=== PATIENT | male | born 1940 | race Caucasian/White ===

== ENCOUNTER 2017-12-04 15:40 | Inpatient (IN) | payer MEDICARE, OTHER ==
[~2017-12-04] VITALS: Ht 172.7 cm; Wt 62.7 kg
[~2017-12-04 15:40] MED LIST: ALBU8.5H8 IH; ASPI81TA52 PO; ATOR20TA PO; CHOL400T57 PO; CLOP75TA33 PO; FLO0.4C PO; LISI2.5T49 PO; METO25TA6 PO; MULT-342 PO; PANT40TA39 PO; VITC500T PO
[2017-12-04 16:08] LABS: BASOPHILS # (AUTO) 0.1 X10'3 (0-0.2); BASOPHILS % (AUTO) 0.9 % (0-1); EOSINOPHILS # (AUTO) 0.1 X10'3 (0-0.9); EOSINOPHILS % (AUTO) 1.5 % (0-6); HEMATOCRIT 41.4 % (42.0-52.0); HEMOGLOBIN 14.3 g/dl (14.0-17.9); MEAN CORPUSCULAR HEMOGLOBIN 29.5 PG (27.0-31.0); MEAN CORPUSCULAR HGB CONC 34.4 % (33.0-36.5); MEAN CORPUSCULAR VOLUME 85.8 FL (78-98); MEAN PLATELET VOLUME 8.3 FL (7.4-10.4); MONOCYTES # (AUTO) 0.5 X10'3 (0-0.9); MONOCYTES % (AUTO) 7.5 % (2-12); NEUTROPHILS # (AUTO) 5.4 X10'3 (1.8-7.7); NEUTROPHILS % (AUTO) 76.1 % (42-75); PLATELET COUNT 216 X10'3 (140-440); RED BLOOD COUNT 4.83 X10'6 (4.70-6.10); RED CELL DISTRIBUTION WIDTH 14.3 % (11.5-14.5); WHITE BLOOD COUNT 7.1 X10'3 (4.5-11.0)
[2017-12-04 16:27] LABS: PARTIAL THROMBOPLASTIN TIME 26 SECONDS (22-32); PROTHROMBIN TIME 10.6 SECONDS (9.0-12.0)
[2017-12-04 16:32] LABS: ACETAMINOPHEN < 2.0 UG/ML (10-30); CREATINE KINASE 79 U/L (39-308); ETHANOL < 0.010 GM/DL (0.0-0.010); LIPASE 145 U/L (73-393); TROPONIN I 0.04 NG/ML (0.0-0.05)
[2017-12-04 17:05] LABS: ALANINE AMINOTRANSFERASE 11 U/L (12-78); ALBUMIN 3.6 G/DL (3.4-5.0); ALBUMIN/GLOBULIN RATIO 1.2 (1.1-1.5); ALKALINE PHOSPHATASE 93 IU/L (46-116); ANION GAP 10 (8-16); ASPARTATE AMINO TRANSFERASE 12 U/L (10-37); BILIRUBIN,TOTAL 0.7 MG/DL (0.1-1.0); BLOOD UREA NITROGEN 19 MG/DL (7-18); BUN/CREATININE RATIO 14.6 (5.4-32.0); CALCIUM 8.8 MG/DL (8.5-10.1); CHLORIDE 110 MMOL/L (99-107); GLUCOSE 140 MG/DL (70-104); POTASSIUM 4.4 MMOL/L (3.5-5.1); SODIUM 144 MMOL/L (135-145); TOTAL CARBON DIOXIDE 24.5 MMOL/L (24-32); TOTAL PROTEIN 6.7 G/DL (6.4-8.2); eGFR 53 ML/MIN
[2017-12-04 18:02] LABS: CLARITY,URINE CLEAR (Clear); COLOR,URINE YELLOW (Yellow); GLUCOSE, URINE NEGATIVE (Neg); KETONES,URINE NEGATIVE (Neg); LEUKOCYTE ESTERASE ,URINE NEGATIVE (Neg); NITRITES, URINE NEGATIVE (Neg); OCCULT BLOOD,URINE NEGATIVE (Neg); PH,URINE 5.5 (4.8-8.0); PROTEIN,URINE TRACE mg/dl (Neg); UA COLLECTION TYPE STRAIGHT CATH; UROBILINOGEN,URINE 0.2 E.U/dL (0.2-1.0)
[2017-12-04 18:12] LABS: HYALINE CASTS 0-3 /LPF (NEGATIVE); MUCUS STRANDS FEW /LPF (Neg); SQUAMOUS EPITHELIAL CELL,UR FEW /LPF (FEW); TRANSITIONAL EPI CELLS,URINE FEW /HPF
[2017-12-04 18:13] LABS: BACTERIA,URINE NONE SEEN /HPF (Neg); RBC,URINE 0-2 /HPF (0-2); WBC,URINE 0-4 /HPF (0-4)
[2017-12-04 18:15] LABS: AMORPHOUS URATES 2+
[2017-12-04 18:16] LABS: URINE AMPHETAMINE SCREEN NEGATIVE (Neg); URINE BARBITUATE SCREEN NEGATIVE (Neg); URINE BENZODIAZEPINES SCREEN NEGATIVE (Neg); URINE CANNABINOID SCREEN NEGATIVE (Neg); URINE COCAINE SCREEN NEGATIVE (Neg); URINE METHADONE SCREEN NEGATIVE (Neg); URINE OPIATE SCREEN NEGATIVE (Neg); URINE PHENCYCLIDINE SCREEN NEGATIVE (Neg)
[2017-12-04] MEDS ORDERED: cephalexin 500mg capsule PO ONE (18:50)
[2017-12-04] MEDS ORDERED: CEPH250T PO (18:50)
[2017-12-04] MEDS ORDERED: GALA16CA PO (19:22)
[2017-12-04] MEDS ORDERED: CITA20TA11 PO (19:22)
[2017-12-04] MEDS ORDERED: ATOR80TA PO (19:22)
[2017-12-04] MEDS ORDERED: CHOL2000 PO (19:22)
[2017-12-04] MEDS ORDERED: LOSA25TA96 PO (19:22)
[2017-12-04] MEDS ORDERED: FINA5TAB11 PO (19:22)
[2017-12-04] MEDS ORDERED: temazepam 15mg capsule PO PRN (21:00)
[2017-12-04] MEDS ORDERED: diphenhydrAMINE 50 mg/ml inj IV PRN (22:00)
[2017-12-04] MEDS ORDERED: metoclopramide 5 mg/ml inj IV PRN (22:00)
[2017-12-04] MEDS ORDERED: morphine 2 MG/ML inj. syringe IV PRN ×2 (22:00)
[2017-12-04] MEDS ORDERED: bisacodyl 10mg suppository rectal RC PRN (22:00)
[2017-12-04] MEDS ORDERED: magnesium hydroxide 30ml (MOM) UD suspension PO PRN (22:00)
[2017-12-04] MEDS ORDERED: HYDROcodone/acetaminophen 5mg/325mg tablet PO PRN (22:00)
[2017-12-04] MEDS ORDERED: HYDROcodone/acetaminophen 10/325mg tab PO PRN (22:00)
[2017-12-04] MEDS ORDERED: albuterol 2.5 MG/3 ML nebule NEB PRN (22:00)
[2017-12-04] MEDS ORDERED: acetaminophen 650mg rectal suppository RC PRN (22:00)
[2017-12-04] MEDS ORDERED: HYDROmorphone 1 mg/ml syringe IV PRN ×2 (22:00)
[2017-12-04] MEDS ORDERED: ondansetron/PF 4mg/2ml inj IV PRN (22:00)
[2017-12-04] MEDS ORDERED: mag hydrox/Alum hydrox/simeth 30ml oral suspension PO PRN (22:00)
[2017-12-04] MEDS ORDERED: acetaminophen 325mg tablet PO PRN ×2 (22:00)
[2017-12-04] MEDS ORDERED: diphenhydrAMINE 25mg capsule PO PRN (22:00)
[2017-12-04 22:29] LABS: HEMOGLOBIN A1C 5.9 % (4.5-6.2)
[2017-12-04] MEDS: normal saline 1000ml 1,000 ML IV SCH (22:31)
[2017-12-04 22:36] LABS: MAGNESIUM 1.8 MG/DL (1.5-2.4); PHOSPHORUS 3.2 MG/DL (2.3-4.5)
[2017-12-05 07:40] LABS: BASOPHILS % (AUTO) 0.3 % (0-1); EOSINOPHILS # (AUTO) 0.2 X10'3 (0-0.9); EOSINOPHILS % (AUTO) 2.4 % (0-6); HEMOGLOBIN 13.7 g/dl (14.0-17.9); LYMPHOCYTES # (AUTO) 1.3 X10'3 (1.1-4.8); LYMPHOCYTES % (AUTO) 14.9 % (21-51); MEAN CORPUSCULAR HEMOGLOBIN 29.6 PG (27.0-31.0); MEAN CORPUSCULAR HGB CONC 34.3 % (33.0-36.5); MEAN CORPUSCULAR VOLUME 86.2 FL (78-98); MEAN PLATELET VOLUME 8.3 FL (7.4-10.4); MONOCYTES # (AUTO) 0.8 X10'3 (0-0.9); MONOCYTES % (AUTO) 8.8 % (2-12); NEUTROPHILS # (AUTO) 6.6 X10'3 (1.8-7.7); NEUTROPHILS % (AUTO) 73.6 % (42-75); PLATELET COUNT 222 X10'3 (140-440); RED BLOOD COUNT 4.64 X10'6 (4.70-6.10); RED CELL DISTRIBUTION WIDTH 14.5 % (11.5-14.5)
[2017-12-05 07:56] LABS: ALANINE AMINOTRANSFERASE 17 U/L (12-78); ALBUMIN 3.3 G/DL (3.4-5.0); ALBUMIN/GLOBULIN RATIO 1.1 (1.1-1.5); ALKALINE PHOSPHATASE 83 IU/L (46-116); ANION GAP 7 (8-16); ASPARTATE AMINO TRANSFERASE 13 U/L (10-37); BILIRUBIN,TOTAL 0.8 MG/DL (0.1-1.0); BLOOD UREA NITROGEN 21 MG/DL (7-18); CALCIUM 8.6 MG/DL (8.5-10.1); CHLORIDE 110 MMOL/L (99-107); CHOL/HDL RATIO 2.9 (0.00-4.99); CHOLESTEROL 152 MG/DL (0-200); GLUCOSE 82 MG/DL (70-104); HDL CHOLESTEROL 52 MG/DL (35-60); LDL CHOLESTEROL 97 MG/DL (50-100); POTASSIUM 4.3 MMOL/L (3.5-5.1); SODIUM 144 MMOL/L (135-145); TOTAL CARBON DIOXIDE 27.2 MMOL/L (24-32); TOTAL PROTEIN 6.3 G/DL (6.4-8.2); TRIGLYCERIDES 59 MG/DL (20-135); eGFR 49 ML/MIN
[2017-12-05] MEDS: docusate sod 100mg capsule PO SCH ×2 (08:00→19:33)
[2017-12-05] MEDS: CITALOpram 10mg tablet PO SCH (08:00)
[2017-12-05] MEDS: pantoprazole 40mg Tablet.DR PO SCH (08:00)
[2017-12-05] MEDS: atorvastatin 20mg tablet PO SCH (08:00)
[2017-12-05] MEDS: clopidogrel 75mg tablet PO SCH (08:00)
[2017-12-05] MEDS: metoprolol tartrate 12.5mg (1/2 tablet) PO SCH ×2 (08:00→19:33)
[2017-12-05] MEDS: aspirin 81mg tablet.DR PO SCH (08:00)
[2017-12-05] MEDS: finasteride 5mg tablet PO SCH (08:00)
[2017-12-05] MEDS: tamsulosin 0.4mg capsule PO SCH (08:00)
[2017-12-05] MEDS: losartan 25mg tablet PO SCH (08:00)
[2017-12-05 10:43] VITALS: BP 141/56
[2017-12-05 16:30] VITALS: BP_SYST 126; BP_SYST 132; BP_SYST 138; BP_DIAS 59; BP_DIAS 61; BP_DIAS 65
[2017-12-05] MEDS ORDERED: morphine 5 MG/ML injection IV PRN ×2 (17:04)
[2017-12-05 18:00] VITALS: BP 126/65
[2017-12-05] MEDS: normal saline 1000ml 1,000 ML IV SCH (19:33)
[2017-12-05 22:21] VITALS: BP 115/54
[2017-12-06 02:23] VITALS: BP 125/73
[2017-12-06 06:00] VITALS: BP 134/58
[2017-12-06 07:08] LABS: BASOPHILS # (AUTO) 0.1 X10'3 (0-0.2); EOSINOPHILS # (AUTO) 0.3 X10'3 (0-0.9); HEMATOCRIT 36.4 % (42.0-52.0); HEMOGLOBIN 12.5 g/dl (14.0-17.9); LYMPHOCYTES # (AUTO) 1.3 X10'3 (1.1-4.8); LYMPHOCYTES % (AUTO) 20.5 % (21-51); MEAN CORPUSCULAR HEMOGLOBIN 29.3 PG (27.0-31.0); MEAN CORPUSCULAR HGB CONC 34.2 % (33.0-36.5); MEAN CORPUSCULAR VOLUME 85.7 FL (78-98); MEAN PLATELET VOLUME 8.9 FL (7.4-10.4); MONOCYTES # (AUTO) 0.6 X10'3 (0-0.9); MONOCYTES % (AUTO) 9.9 % (2-12); NEUTROPHILS # (AUTO) 4.1 X10'3 (1.8-7.7); NEUTROPHILS % (AUTO) 64.6 % (42-75); PLATELET COUNT 203 X10'3 (140-440); RED BLOOD COUNT 4.25 X10'6 (4.70-6.10); RED CELL DISTRIBUTION WIDTH 14.5 % (11.5-14.5); WHITE BLOOD COUNT 6.3 X10'3 (4.5-11.0)
[2017-12-06 07:35] LABS: ALANINE AMINOTRANSFERASE 16 U/L (12-78); ALBUMIN 2.9 G/DL (3.4-5.0); ALBUMIN/GLOBULIN RATIO 1.1 (1.1-1.5); ALKALINE PHOSPHATASE 77 IU/L (46-116); ANION GAP 5 (8-16); ASPARTATE AMINO TRANSFERASE 16 U/L (10-37); BILIRUBIN,TOTAL 0.4 MG/DL (0.1-1.0); BLOOD UREA NITROGEN 23 MG/DL (7-18); BUN/CREATININE RATIO 17.7 (5.4-32.0); CALCIUM 8.1 MG/DL (8.5-10.1); CHLORIDE 111 MMOL/L (99-107); GLUCOSE 94 MG/DL (70-104); SODIUM 142 MMOL/L (135-145); TOTAL CARBON DIOXIDE 26.2 MMOL/L (24-32); TOTAL PROTEIN 5.6 G/DL (6.4-8.2); eGFR 53 ML/MIN
[2017-12-06] MEDS: metoprolol tartrate 12.5mg (1/2 tablet) PO SCH (08:00)
[2017-12-06] MEDS: CITALOpram 10mg tablet PO SCH (08:00)
[2017-12-06 08:04] VITALS: BP 172/72
[2017-12-06] MEDS: finasteride 5mg tablet PO SCH (08:09)
[2017-12-06] MEDS: losartan 25mg tablet PO SCH (08:09)
[2017-12-06] MEDS: atorvastatin 20mg tablet PO SCH (08:10)
[2017-12-06] MEDS: aspirin 81mg tablet.DR PO SCH (08:10)
[2017-12-06] MEDS: clopidogrel 75mg tablet PO SCH (08:10)
[2017-12-06] MEDS: tamsulosin 0.4mg capsule PO SCH (08:12)
[2017-12-06] MEDS: pantoprazole 40mg Tablet.DR PO SCH (08:13)
[2017-12-06] MEDS: docusate sod 100mg capsule PO SCH (08:13)
== END 2017-12-06 11:50 | disposition home health service (06) | DRG 605 ==
LOC: ER 15:41 → ED HOLD 21:57 → ORTHO 4S 12-05 09:15
PROVIDERS: ADMIT Family Medicine; ATTEND Family Medicine
PROC: 0HQ0XZZ Repair Scalp Skin, External Approach (ICD-10-PCS; principal; 2017-12-04)
DX: S01.01XA Laceration without foreign body of scalp, initial encounter (principal); N17.9 Acute kidney failure, unspecified; E86.0 Dehydration; D64.9 Anemia, unspecified; I65.23 Occlusion and stenosis of bilateral carotid arteries; E78.00 Pure hypercholesterolemia, unspecified; J44.9 Chronic obstructive pulmonary disease, unspecified; G31.84 Mild cognitive impairment of uncertain or unknown etiology; W00.0XXA Fall on same level due to ice and snow, initial encounter; H91.90 Unspecified hearing loss, unspecified ear; I12.9 Hypertensive chronic kidney disease with stage 1 through stage 4 chronic kidney disease, or unspecified chronic kidney disease; I25.10 Atherosclerotic heart disease of native coronary artery without angina pectoris; R26.9 Unspecified abnormalities of gait and mobility; K21.9 Gastro-esophageal reflux disease without esophagitis; N18.9 Chronic kidney disease, unspecified; Z95.5 Presence of coronary angioplasty implant and graft; Z99.3 Dependence on wheelchair; Z88.2 Allergy status to sulfonamides; Z88.8 Allergy status to other drugs, medicaments and biological substances; Z79.899 Other long term (current) drug therapy; Z79.02 Long term (current) use of antithrombotics/antiplatelets; Z86.73 Personal history of transient ischemic attack (TIA), and cerebral infarction without residual deficits; Y93.01 Activity, walking, marching and hiking; Y92.89 Other specified places as the place of occurrence of the external cause; Y99.8 Other external cause status
CPT/HCPCS: 12001; 36415; 70450; 70551; 71045; 72125; 80053; 80061; 80305; 80320; 80329; 81001; 82550; 83036; 83605; 83690; 83735; 83880; 84100; 84443; 84484; 85025; 85610; 85730; 86885; 86900; 86901; 87070; 92616; 93005; 93306; 93880; 94760; 99285; A4353; J7030

== ENCOUNTER 2018-02-11 11:55 | Emergency (ER) | payer MEDICARE, OTHER ==
[~2018-02-11] VITALS: Ht 167.6 cm; Wt 65.0 kg
[~2018-02-11 11:55] MED LIST changes: -ALBU8.5H8 IH; -ATOR20TA PO; +ATOR80TA PO; +CHOL2000 PO; -CHOL400T57 PO; +CITA20TA11 PO; +FINA5TAB11 PO; +GALA16CA PO; -LISI2.5T49 PO; +LOSA25TA96 PO; -MULT-342 PO; -VITC500T PO
[2018-02-11 12:18] VITALS: BP 146/74
[2018-02-11] MEDS ORDERED: dexamethasone 4mg tablet PO STA (14:28)
== END 2018-02-11 14:55 | disposition home or self-care (01) ==
LOC: ER 11:55
DX: J44.1 Chronic obstructive pulmonary disease with (acute) exacerbation (principal); I10 Essential (primary) hypertension; I25.10 Atherosclerotic heart disease of native coronary artery without angina pectoris; E78.00 Pure hypercholesterolemia, unspecified; K21.9 Gastro-esophageal reflux disease without esophagitis; Z86.73 Personal history of transient ischemic attack (TIA), and cerebral infarction without residual deficits; Z88.2 Allergy status to sulfonamides; Z88.8 Allergy status to other drugs, medicaments and biological substances; Z79.82 Long term (current) use of aspirin; Z79.899 Other long term (current) drug therapy
CPT/HCPCS: 71046; 99284; J8540

== ENCOUNTER 2018-02-20 09:40 | Inpatient (IN) | payer MEDICARE, OTHER ==
[~2018-02-20] VITALS: Ht 172.7 cm; Wt 55.0 kg
[2018-02-20] MEDS ORDERED: normal saline 1000ml 1,000 ML IV ONE (09:42)
[2018-02-20] MEDS ORDERED: methylPREDNISolone sod succ 125mg/2ml vial IV ONE (09:45)
[2018-02-20] MEDS ORDERED: normal saline 1000ML IV soln IVB ONE ×2 (09:45→10:45)
[2018-02-20] MEDS ORDERED: albuterol 2.5 MG/3 ML nebule NEB ONE (09:45)
[2018-02-20 10:05] LABS: BASOPHILS # (AUTO) 0.1 X10'3 (0-0.2); BASOPHILS % (AUTO) 0.6 % (0-1); EOSINOPHILS # (AUTO) 0.3 X10'3 (0-0.9); EOSINOPHILS % (AUTO) 1.8 % (0-6); HEMATOCRIT 45.4 % (42.0-52.0); HEMOGLOBIN 15.3 g/dl (14.0-17.9); LYMPHOCYTES # (AUTO) 0.8 X10'3 (1.1-4.8); LYMPHOCYTES % (AUTO) 4.4 % (21-51); MEAN CORPUSCULAR HEMOGLOBIN 28.8 PG (27.0-31.0); MEAN CORPUSCULAR HGB CONC 33.7 % (33.0-36.5); MEAN CORPUSCULAR VOLUME 85.7 FL (78-98); MEAN PLATELET VOLUME 9.4 FL (7.4-10.4); MONOCYTES # (AUTO) 1.2 X10'3 (0-0.9); MONOCYTES % (AUTO) 6.2 % (2-12); NEUTROPHILS # (AUTO) 16.6 X10'3 (1.8-7.7); PLATELET COUNT 343 X10'3 (140-440); RED CELL DISTRIBUTION WIDTH 13.6 % (11.5-14.5); WHITE BLOOD COUNT 19.1 X10'3 (4.5-11.0)
[2018-02-20 10:16] LABS: INR 1.1 INR; PARTIAL THROMBOPLASTIN TIME 34 SECONDS (22-32)
[2018-02-20 10:28] LABS: ALANINE AMINOTRANSFERASE 25 U/L (12-78); ALBUMIN 2.5 G/DL (3.4-5.0); ALBUMIN/GLOBULIN RATIO 0.4 (1.1-1.5); ALKALINE PHOSPHATASE 129 IU/L (46-116); ANION GAP 13 (8-16); ASPARTATE AMINO TRANSFERASE 33 U/L (10-37); BILIRUBIN,TOTAL 0.5 MG/DL (0.1-1.0); BLOOD UREA NITROGEN 53 MG/DL (7-18); BUN/CREATININE RATIO 22.2 (5.4-32.0); CALCIUM 9.6 MG/DL (8.5-10.1); CHLORIDE 108 MMOL/L (99-107); CREATININE 2.39 MG/DL (0.60-1.10); GLUCOSE 109 MG/DL (70-104); MAGNESIUM 2.5 MG/DL (1.5-2.4); PHOSPHORUS 3.8 MG/DL (2.3-4.5); SODIUM 147 MMOL/L (135-145); TOTAL PROTEIN 8.5 G/DL (6.4-8.2); eGFR 26 ML/MIN
[2018-02-20] MEDS ORDERED: azithromycin/NS 500mg/250ml 250 ML IV ONE (10:45)
[2018-02-20] MEDS ORDERED: CefTRIAXone 2gm/D5W 50ml 50 ML IV ONE (10:45)
[2018-02-20 11:25] LABS: ABG BASE EXCESS -7.3 mmol/L (-2.0-3.0); ABG HCO3 16.3 mmol/L (22.0-26.0); ABG OXYGEN SATURATION 92.8 % (95-98); ABG PH (T) 7.384 (7.350-7.450); ABG PO2 (T) 70.2 mmHg (83-108); ALLEN'S TEST Positive; FCOHb 0.6 % (0.5-1.5); FMetHb 0.1 % (0.3-1.12); FO2Hb 92.2 % (94-100); TOTAL HEMOGLOBIN 13.1 G/dl (14.0-18.0)
[2018-02-20] MEDS ORDERED: ipratropium/albuterol 3ml nebule ONE (11:29)
[2018-02-20] MEDS ORDERED: ipratropium/albuterol 3ml nebule NEB ONE (11:30)
[2018-02-20] MEDS ORDERED: potassium Cl 20 mEq SR tablet PO PRN (11:40)
[2018-02-20] MEDS ORDERED: mag hydrox/Alum hydrox/simeth 30ml oral suspension PO PRN (11:40)
[2018-02-20] MEDS ORDERED: acetaminophen 325mg tablet PO PRN (11:40)
[2018-02-20] MEDS ORDERED: albuterol 2.5 MG/3 ML nebule NEB PRN (11:40)
[2018-02-20] MEDS ORDERED: magnesium hydroxide 30ml (MOM) UD suspension PO PRN (11:40)
[2018-02-20] MEDS ORDERED: HYDROcodone/acetaminophen 5mg/325mg tablet PO PRN (11:40)
[2018-02-20] MEDS ORDERED: ondansetron/PF 4mg/2ml inj IV PRN (11:40)
[2018-02-20] MEDS ORDERED: potassium Cl 40MEQ/NS 500ml 500 ML IV PRN ×2 (11:40)
[2018-02-20] MEDS: normal saline 1000ml 1,000 ML IV SCH ×2 (12:11→22:18)
[2018-02-20] MEDS ORDERED: ROSU40TA PO (15:09)
[2018-02-20] MEDS ORDERED: PANT-47 PO (15:09)
[2018-02-20] MEDS ORDERED: LORA10TA7 PO (15:10)
[2018-02-20] MEDS: ipratropium/albuterol 3ml nebule NEB SCH ×3 (15:44→23:58)
[2018-02-20] MEDS: methylPREDNISolone sod succ 125mg/2ml vial IV SCH (16:46)
[2018-02-20] MEDS ORDERED: cefepime 2gm inj IV SCH (20:00)
[2018-02-20] MEDS: metoprolol tartrate 12.5mg (1/2 tablet) PO SCH (20:32)
[2018-02-20] MEDS: heparin, porcine 5000 units/ml vial SQ SCH (20:32)
[2018-02-20] MEDS: CEFEPIME IV SCH (21:33)
[2018-02-20] MEDS: WATER IV SCH (21:33)
[2018-02-20] MEDS: DEXTROSE 5% IV SCH (21:33)
[2018-02-21] MEDS: methylPREDNISolone sod succ 125mg/2ml vial IV SCH ×3 (00:07→16:10)
[2018-02-21] MEDS: ipratropium/albuterol 3ml nebule NEB SCH ×6 (03:53→23:22)
[2018-02-21 07:47] LABS: ANION GAP 13 (8-16); BLOOD UREA NITROGEN 44 MG/DL (7-18); BUN/CREATININE RATIO 24.7 (5.4-32.0); CALCIUM 8.5 MG/DL (8.5-10.1); CHLORIDE 110 MMOL/L (99-107); CREATININE 1.78 MG/DL (0.60-1.10); GLUCOSE 158 MG/DL (70-104); POTASSIUM 3.6 MMOL/L (3.5-5.1); SODIUM 144 MMOL/L (135-145); TOTAL CARBON DIOXIDE 21.2 MMOL/L (24-32); eGFR 37 ML/MIN
[2018-02-21] MEDS: K and/or MAG REPLACEMENT MC SCH (08:00)
[2018-02-21] MEDS ORDERED: non-formulary drug (Atorvastatin Calcium (Lipitor) 1 TAB) PO SCH (08:00)
[2018-02-21] MEDS ORDERED: non-formulary drug (Cholecalciferol (Vitamin D3) (Vitamin D-3) 2,000 UNIT) PO SCH (08:00)
[2018-02-21 08:32] LABS: BASOPHILS % (AUTO) 0.1 % (0-1); EOSINOPHILS # (AUTO) 0.3 X10'3 (0-0.9); EOSINOPHILS % (AUTO) 1.6 % (0-6); HEMATOCRIT 36.3 % (42.0-52.0); HEMOGLOBIN 12.3 g/dl (14.0-17.9); LYMPHOCYTES # (AUTO) 0.6 X10'3 (1.1-4.8); LYMPHOCYTES % (AUTO) 3.7 % (21-51); MEAN CORPUSCULAR HEMOGLOBIN 28.9 PG (27.0-31.0); MEAN CORPUSCULAR HGB CONC 33.9 % (33.0-36.5); MEAN CORPUSCULAR VOLUME 85.1 FL (78-98); MEAN PLATELET VOLUME 9.8 FL (7.4-10.4); MONOCYTES # (AUTO) 0.2 X10'3 (0-0.9); MONOCYTES % (AUTO) 1.5 % (2-12); NEUTROPHILS # (AUTO) 15.8 X10'3 (1.8-7.7); NEUTROPHILS % (AUTO) 93.1 % (42-75); PLATELET COUNT 267 X10'3 (140-440); RED BLOOD COUNT 4.26 X10'6 (4.70-6.10); RED CELL DISTRIBUTION WIDTH 13.6 % (11.5-14.5); WHITE BLOOD COUNT 16.9 X10'3 (4.5-11.0)
[2018-02-21] MEDS: normal saline 1000ml 1,000 ML IV SCH (09:20)
[2018-02-21] MEDS: azithromycin/NS 500mg/250ml 250 ML IV SCH (09:25)
[2018-02-21] MEDS: vitamin D (cholecalciferol) 1,000 unit tablet PO SCH (09:27)
[2018-02-21] MEDS: metoprolol tartrate 12.5mg (1/2 tablet) PO SCH ×2 (09:27→21:44)
[2018-02-21] MEDS: clopidogrel 75mg tablet PO SCH (09:28)
[2018-02-21] MEDS: aspirin 81mg tablet.DR PO SCH (09:28)
[2018-02-21] MEDS: pantoprazole 40mg Tablet.DR PO SCH (09:29)
[2018-02-21] MEDS: tamsulosin 0.4mg capsule PO SCH (09:29)
[2018-02-21] MEDS: heparin, porcine 5000 units/ml vial SQ SCH ×2 (09:32→21:44)
[2018-02-21] MEDS: atorvastatin 20mg tablet PO SCH (09:55)
[2018-02-21] MEDS: CITALOpram 10mg tablet PO SCH (09:56)
[2018-02-21] MEDS: losartan 50mg tablet PO SCH (09:56)
[2018-02-21] MEDS: finasteride 5mg tablet PO SCH ×2 (09:56→10:01)
[2018-02-21] MEDS: DEXTROSE 5% IV SCH ×2 (10:22→21:56)
[2018-02-21] MEDS: CEFEPIME IV SCH ×2 (10:22→21:56)
[2018-02-21] MEDS: WATER IV SCH ×2 (10:22→21:56)
[2018-02-21 13:10] VITALS: BP 132/60
[2018-02-21 15:00] VITALS: BP 142/58
[2018-02-21 17:20] VITALS: BP 140/61
[2018-02-21 18:30] VITALS: BP 147/42
[2018-02-21] MEDS: lactobacillus rhamnosus 10,000 MMU CELLS/CAPSULE PO SCH (21:44)
[2018-02-21 22:00] VITALS: BP 149/62
[2018-02-22] MEDS: methylPREDNISolone sod succ 125mg/2ml vial IV SCH ×4 (00:44→23:46)
[2018-02-22 02:00] VITALS: BP 171/49
[2018-02-22] MEDS: ipratropium/albuterol 3ml nebule NEB SCH ×6 (03:00→23:00)
[2018-02-22 05:41] LABS: BASOPHILS % (AUTO) 0 % (0-1); EOSINOPHILS # (AUTO) 0.3 X10'3 (0-0.9); EOSINOPHILS % (AUTO) 1.4 % (0-6); HEMATOCRIT 36.5 % (42.0-52.0); HEMOGLOBIN 12.3 g/dl (14.0-17.9); LYMPHOCYTES # (AUTO) 0.6 X10'3 (1.1-4.8); LYMPHOCYTES % (AUTO) 2.5 % (21-51); MEAN CORPUSCULAR HEMOGLOBIN 29.2 PG (27.0-31.0); MEAN CORPUSCULAR HGB CONC 33.8 % (33.0-36.5); MEAN CORPUSCULAR VOLUME 86.2 FL (78-98); MEAN PLATELET VOLUME 10.3 FL (7.4-10.4); MONOCYTES # (AUTO) 0.4 X10'3 (0-0.9); MONOCYTES % (AUTO) 1.9 % (2-12); NEUTROPHILS # (AUTO) 21.4 X10'3 (1.8-7.7); NEUTROPHILS % (AUTO) 94.2 % (42-75); PLATELET COUNT 297 X10'3 (140-440); RED BLOOD COUNT 4.23 X10'6 (4.70-6.10); RED CELL DISTRIBUTION WIDTH 13.8 % (11.5-14.5); WHITE BLOOD COUNT 22.8 X10'3 (4.5-11.0)
[2018-02-22 06:31] LABS: ALBUMIN 2.1 G/DL (3.4-5.0); ANION GAP 14 (8-16); BLOOD UREA NITROGEN 34 MG/DL (7-18); BUN/CREATININE RATIO 19.9 (5.4-32.0); CALCIUM 8.8 MG/DL (8.5-10.1); CHLORIDE 109 MMOL/L (99-107); CREATININE 1.71 MG/DL (0.60-1.10); GLUCOSE 141 MG/DL (70-104); SODIUM 144 MMOL/L (135-145); TOTAL CARBON DIOXIDE 21.3 MMOL/L (24-32); eGFR 39 ML/MIN
[2018-02-22] MEDS ORDERED: LORazepam 1 MG tablet PO PRN (06:35)
[2018-02-22 07:00] VITALS: BP 179/66
[2018-02-22] MEDS: potassium Cl 20 mEq SR tablet PO PRN ×3 (07:37→20:06)
[2018-02-22] MEDS: losartan 50mg tablet PO SCH (07:37)
[2018-02-22] MEDS: clopidogrel 75mg tablet PO SCH (07:38)
[2018-02-22] MEDS: pantoprazole 40mg Tablet.DR PO SCH (07:38)
[2018-02-22] MEDS: CITALOpram 10mg tablet PO SCH (07:38)
[2018-02-22] MEDS: finasteride 5mg tablet PO SCH (07:39)
[2018-02-22] MEDS: metoprolol tartrate 12.5mg (1/2 tablet) PO SCH ×2 (07:39→20:06)
[2018-02-22] MEDS: lactobacillus rhamnosus 10,000 MMU CELLS/CAPSULE PO SCH ×2 (07:39→20:06)
[2018-02-22] MEDS: aspirin 81mg tablet.DR PO SCH (07:39)
[2018-02-22] MEDS: atorvastatin 20mg tablet PO SCH (07:40)
[2018-02-22] MEDS: vitamin D (cholecalciferol) 1,000 unit tablet PO SCH (07:40)
[2018-02-22] MEDS: heparin, porcine 5000 units/ml vial SQ SCH ×2 (07:51→20:07)
[2018-02-22] MEDS: tamsulosin 0.4mg capsule PO SCH (07:53)
[2018-02-22] MEDS: CEFEPIME IV SCH ×2 (07:57→20:07)
[2018-02-22] MEDS: WATER IV SCH ×2 (07:57→20:07)
[2018-02-22] MEDS: DEXTROSE 5% IV SCH ×2 (07:57→20:07)
[2018-02-22] MEDS: K and/or MAG REPLACEMENT MC SCH (08:00)
[2018-02-22] MEDS ORDERED: haloperidol lactate 5mg/ml inj IM PRN (08:40)
[2018-02-22] MEDS: azithromycin/NS 500mg/250ml 250 ML IV SCH (09:58)
[2018-02-22] MEDS: LORazepam 2 mg/ml vial IV PRN ×2 (10:24→14:41)
[2018-02-22 11:00] VITALS: BP 141/61
[2018-02-22 15:00] VITALS: BP 163/80
[2018-02-22 18:00] VITALS: BP 150/67
[2018-02-22 22:00] VITALS: BP 161/82
[2018-02-23 02:00] VITALS: BP 116/65
[2018-02-23] MEDS: ipratropium/albuterol 3ml nebule NEB SCH ×6 (03:00→23:27)
[2018-02-23 05:56] LABS: BASOPHILS % (AUTO) 0.1 % (0-1); EOSINOPHILS # (AUTO) 0.2 X10'3 (0-0.9); EOSINOPHILS % (AUTO) 1.5 % (0-6); HEMATOCRIT 32.6 % (42.0-52.0); HEMOGLOBIN 10.9 g/dl (14.0-17.9); LYMPHOCYTES # (AUTO) 0.5 X10'3 (1.1-4.8); LYMPHOCYTES % (AUTO) 3.9 % (21-51); MEAN CORPUSCULAR HEMOGLOBIN 28.8 PG (27.0-31.0); MEAN CORPUSCULAR HGB CONC 33.6 % (33.0-36.5); MEAN CORPUSCULAR VOLUME 85.7 FL (78-98); MEAN PLATELET VOLUME 10.2 FL (7.4-10.4); MONOCYTES # (AUTO) 0.2 X10'3 (0-0.9); MONOCYTES % (AUTO) 1.4 % (2-12); NEUTROPHILS # (AUTO) 11.3 X10'3 (1.8-7.7); NEUTROPHILS % (AUTO) 93.1 % (42-75); PLATELET COUNT 283 X10'3 (140-440); RED CELL DISTRIBUTION WIDTH 14.1 % (11.5-14.5); WHITE BLOOD COUNT 12.1 X10'3 (4.5-11.0)
[2018-02-23 06:00] VITALS: BP 107/59
[2018-02-23 06:14] LABS: ALBUMIN 1.8 G/DL (3.4-5.0); ANION GAP 8 (8-16); BLOOD UREA NITROGEN 29 MG/DL (7-18); CALCIUM 8.5 MG/DL (8.5-10.1); CHLORIDE 114 MMOL/L (99-107); CREATININE 1.32 MG/DL (0.60-1.10); GLUCOSE 146 MG/DL (70-104); POTASSIUM 4.8 MMOL/L (3.5-5.1); SODIUM 145 MMOL/L (135-145); TOTAL CARBON DIOXIDE 23.3 MMOL/L (24-32); eGFR 52 ML/MIN
[2018-02-23] MEDS: K and/or MAG REPLACEMENT MC SCH (08:00)
[2018-02-23] MEDS: metoprolol tartrate 12.5mg (1/2 tablet) PO SCH ×2 (08:51→19:35)
[2018-02-23] MEDS: WATER IV SCH ×2 (08:51→19:34)
[2018-02-23] MEDS: DEXTROSE 5% IV SCH ×2 (08:51→19:34)
[2018-02-23] MEDS: CEFEPIME IV SCH ×2 (08:51→19:34)
[2018-02-23] MEDS: vitamin D (cholecalciferol) 1,000 unit tablet PO SCH (08:51)
[2018-02-23] MEDS: aspirin 81mg tablet.DR PO SCH (08:52)
[2018-02-23] MEDS: losartan 50mg tablet PO SCH (08:52)
[2018-02-23] MEDS: atorvastatin 20mg tablet PO SCH (08:52)
[2018-02-23] MEDS: clopidogrel 75mg tablet PO SCH (08:52)
[2018-02-23] MEDS: tamsulosin 0.4mg capsule PO SCH (08:52)
[2018-02-23] MEDS: CITALOpram 10mg tablet PO SCH (08:52)
[2018-02-23] MEDS: lactobacillus rhamnosus 10,000 MMU CELLS/CAPSULE PO SCH ×2 (08:52→19:35)
[2018-02-23] MEDS: pantoprazole 40mg Tablet.DR PO SCH (08:52)
[2018-02-23] MEDS: methylPREDNISolone sod succ 125mg/2ml vial IV SCH (08:53)
[2018-02-23] MEDS: finasteride 5mg tablet PO SCH (08:53)
[2018-02-23] MEDS: heparin, porcine 5000 units/ml vial SQ SCH ×2 (08:53→19:35)
[2018-02-23] MEDS: azithromycin/NS 500mg/250ml 250 ML IV SCH (10:44)
[2018-02-23 15:00] VITALS: BP 117/51
[2018-02-23] MEDS ORDERED: methylPREDNISolone sod succ 125mg/2ml vial IV SCH (16:00)
[2018-02-23 18:00] VITALS: BP 146/57
[2018-02-23 22:00] VITALS: BP 150/54
[2018-02-24] MEDS: methylPREDNISolone sod succ/PF 40mg inj. IV SCH ×3 (00:07→16:51)
[2018-02-24 02:00] VITALS: BP 132/55
[2018-02-24] MEDS: ipratropium/albuterol 3ml nebule NEB SCH ×6 (03:18→23:59)
[2018-02-24 05:43] LABS: BASOPHILS # (AUTO) 0.1 X10'3 (0-0.2); BASOPHILS % (AUTO) 0.4 % (0-1); EOSINOPHILS # (AUTO) 0.2 X10'3 (0-0.9); EOSINOPHILS % (AUTO) 1.6 % (0-6); HEMOGLOBIN 11.7 g/dl (14.0-17.9); LYMPHOCYTES # (AUTO) 0.5 X10'3 (1.1-4.8); LYMPHOCYTES % (AUTO) 3.2 % (21-51); MEAN CORPUSCULAR HGB CONC 34.3 % (33.0-36.5); MEAN CORPUSCULAR VOLUME 84.7 FL (78-98); MEAN PLATELET VOLUME 9.7 FL (7.4-10.4); MONOCYTES # (AUTO) 0.3 X10'3 (0-0.9); NEUTROPHILS # (AUTO) 13.8 X10'3 (1.8-7.7); NEUTROPHILS % (AUTO) 92.8 % (42-75); PLATELET COUNT 264 X10'3 (140-440); RED BLOOD COUNT 4.02 X10'6 (4.70-6.10); RED CELL DISTRIBUTION WIDTH 14.3 % (11.5-14.5); WHITE BLOOD COUNT 14.9 X10'3 (4.5-11.0)
[2018-02-24 05:58] LABS: ANION GAP 10 (8-16); BLOOD UREA NITROGEN 33 MG/DL (7-18); BUN/CREATININE RATIO 19.8 (5.4-32.0); CALCIUM 8.5 MG/DL (8.5-10.1); CHLORIDE 113 MMOL/L (99-107); CREATININE 1.67 MG/DL (0.60-1.10); GLUCOSE 145 MG/DL (70-104); POTASSIUM 4.7 MMOL/L (3.5-5.1); SODIUM 146 MMOL/L (135-145); TOTAL CARBON DIOXIDE 23.5 MMOL/L (24-32); eGFR 40 ML/MIN
[2018-02-24 06:00] VITALS: BP 147/60
[2018-02-24] MEDS: K and/or MAG REPLACEMENT MC SCH (08:00)
[2018-02-24] MEDS: atorvastatin 20mg tablet PO SCH (09:35)
[2018-02-24] MEDS: tamsulosin 0.4mg capsule PO SCH (09:35)
[2018-02-24] MEDS: clopidogrel 75mg tablet PO SCH (09:35)
[2018-02-24] MEDS: aspirin 81mg tablet.DR PO SCH (09:36)
[2018-02-24] MEDS: lactobacillus rhamnosus 10,000 MMU CELLS/CAPSULE PO SCH ×2 (09:36→20:08)
[2018-02-24] MEDS: pantoprazole 40mg Tablet.DR PO SCH (09:36)
[2018-02-24] MEDS: losartan 50mg tablet PO SCH (09:36)
[2018-02-24] MEDS: CITALOpram 10mg tablet PO SCH (09:36)
[2018-02-24] MEDS: metoprolol tartrate 12.5mg (1/2 tablet) PO SCH ×2 (09:36→20:08)
[2018-02-24] MEDS: heparin, porcine 5000 units/ml vial SQ SCH ×2 (09:37→20:11)
[2018-02-24] MEDS: vitamin D (cholecalciferol) 1,000 unit tablet PO SCH (09:37)
[2018-02-24] MEDS: WATER IV SCH ×2 (09:38→20:50)
[2018-02-24] MEDS: DEXTROSE 5% IV SCH ×2 (09:38→20:50)
[2018-02-24] MEDS: CEFEPIME IV SCH ×2 (09:38→20:50)
[2018-02-24] MEDS: finasteride 5mg tablet PO SCH (09:40)
[2018-02-24] MEDS: azithromycin/NS 500mg/250ml 250 ML IV SCH (10:39)
[2018-02-24 11:00] VITALS: BP 144/46
[2018-02-24] MEDS: sodium chloride 0.45% 1,000 ML IV SCH (12:43)
[2018-02-24 15:00] VITALS: BP 133/47
[2018-02-24 19:16] VITALS: BP 153/62
[2018-02-24 23:00] VITALS: BP 167/70
[2018-02-25] VITALS (7 sets, daily range): BP systolic 134–157; BP diastolic 51–74
[2018-02-25] MEDS: methylPREDNISolone sod succ/PF 40mg inj. IV SCH ×2 (00:28→07:48)
[2018-02-25] MEDS: sodium chloride 0.45% 1,000 ML IV SCH ×2 (03:00→15:48)
[2018-02-25] MEDS: ipratropium/albuterol 3ml nebule NEB SCH ×6 (03:21→23:21)
[2018-02-25 05:52] LABS: BASOPHILS % (AUTO) 0.2 % (0-1); EOSINOPHILS # (AUTO) 0.1 X10'3 (0-0.9); EOSINOPHILS % (AUTO) 1.2 % (0-6); HEMATOCRIT 35.2 % (42.0-52.0); HEMOGLOBIN 11.9 g/dl (14.0-17.9); LYMPHOCYTES # (AUTO) 0.5 X10'3 (1.1-4.8); LYMPHOCYTES % (AUTO) 4.3 % (21-51); MEAN CORPUSCULAR HEMOGLOBIN 28.8 PG (27.0-31.0); MEAN CORPUSCULAR HGB CONC 33.7 % (33.0-36.5); MEAN CORPUSCULAR VOLUME 85.4 FL (78-98); MEAN PLATELET VOLUME 9.7 FL (7.4-10.4); MONOCYTES # (AUTO) 0.2 X10'3 (0-0.9); NEUTROPHILS % (AUTO) 92.3 % (42-75); PLATELET COUNT 271 X10'3 (140-440); RED BLOOD COUNT 4.13 X10'6 (4.70-6.10); RED CELL DISTRIBUTION WIDTH 14.2 % (11.5-14.5); WHITE BLOOD COUNT 10.8 X10'3 (4.5-11.0)
[2018-02-25 06:06] LABS: ANION GAP 7 (8-16); BLOOD UREA NITROGEN 31 MG/DL (7-18); CALCIUM 8.5 MG/DL (8.5-10.1); CHLORIDE 108 MMOL/L (99-107); CREATININE 1.35 MG/DL (0.60-1.10); GLUCOSE 129 MG/DL (70-104); POTASSIUM 4.6 MMOL/L (3.5-5.1); SODIUM 141 MMOL/L (135-145); TOTAL CARBON DIOXIDE 25.9 MMOL/L (24-32); eGFR 51 ML/MIN
[2018-02-25] MEDS: atorvastatin 20mg tablet PO SCH (07:46)
[2018-02-25] MEDS: clopidogrel 75mg tablet PO SCH (07:46)
[2018-02-25] MEDS: losartan 50mg tablet PO SCH (07:47)
[2018-02-25] MEDS: tamsulosin 0.4mg capsule PO SCH (07:47)
[2018-02-25] MEDS: metoprolol tartrate 12.5mg (1/2 tablet) PO SCH ×2 (07:47→19:21)
[2018-02-25] MEDS: aspirin 81mg tablet.DR PO SCH (07:47)
[2018-02-25] MEDS: vitamin D (cholecalciferol) 1,000 unit tablet PO SCH (07:47)
[2018-02-25] MEDS: pantoprazole 40mg Tablet.DR PO SCH (07:47)
[2018-02-25] MEDS: lactobacillus rhamnosus 10,000 MMU CELLS/CAPSULE PO SCH ×2 (07:47→19:17)
[2018-02-25] MEDS: CITALOpram 10mg tablet PO SCH (07:47)
[2018-02-25] MEDS: heparin, porcine 5000 units/ml vial SQ SCH ×2 (07:48→19:18)
[2018-02-25] MEDS: CEFEPIME IV SCH ×2 (07:49→19:18)
[2018-02-25] MEDS: DEXTROSE 5% IV SCH ×2 (07:49→19:18)
[2018-02-25] MEDS: WATER IV SCH ×2 (07:49→19:18)
[2018-02-25] MEDS: finasteride 5mg tablet PO SCH (07:57)
[2018-02-25] MEDS: K and/or MAG REPLACEMENT MC SCH (07:59)
[2018-02-25] MEDS: azithromycin/NS 500mg/250ml 250 ML IV SCH (09:22)
[2018-02-25] MEDS: predniSONE 20 mg tablet PO SCH (14:08)
[2018-02-26] MEDS: ipratropium/albuterol 3ml nebule NEB SCH ×3 (02:49→11:48)
[2018-02-26 03:00] VITALS: BP 145/58
[2018-02-26 07:02] VITALS: BP 163/65
[2018-02-26] MEDS: sodium chloride 0.45% 1,000 ML IV SCH (07:29)
[2018-02-26] MEDS ORDERED: azithromycin 250mg tablet PO SCH (08:00)
[2018-02-26] MEDS: K and/or MAG REPLACEMENT MC SCH (08:00)
[2018-02-26] MEDS: metoprolol tartrate 12.5mg (1/2 tablet) PO SCH (08:25)
[2018-02-26] MEDS: clopidogrel 75mg tablet PO SCH (08:25)
[2018-02-26] MEDS: tamsulosin 0.4mg capsule PO SCH (08:26)
[2018-02-26] MEDS: atorvastatin 20mg tablet PO SCH (08:26)
[2018-02-26] MEDS: heparin, porcine 5000 units/ml vial SQ SCH (08:26)
[2018-02-26] MEDS: pantoprazole 40mg Tablet.DR PO SCH (08:26)
[2018-02-26] MEDS: predniSONE 20 mg tablet PO SCH (08:27)
[2018-02-26] MEDS: aspirin 81mg tablet.DR PO SCH (08:27)
[2018-02-26] MEDS: lactobacillus rhamnosus 10,000 MMU CELLS/CAPSULE PO SCH (08:27)
[2018-02-26] MEDS: vitamin D (cholecalciferol) 1,000 unit tablet PO SCH (08:27)
[2018-02-26] MEDS: finasteride 5mg tablet PO SCH (08:27)
[2018-02-26] MEDS: CEFEPIME IV SCH (08:28)
[2018-02-26] MEDS: DEXTROSE 5% IV SCH (08:28)
[2018-02-26] MEDS: WATER IV SCH (08:28)
[2018-02-26] MEDS: CITALOpram 10mg tablet PO SCH (08:28)
[2018-02-26] MEDS: losartan 50mg tablet PO SCH (08:28)
[2018-02-26 11:00] VITALS: BP 158/59
== END 2018-02-26 15:30 | DRG 871 ==
LOC: ER 09:41 → ED HOLD 11:36 → PCU 3S 02-21 13:00
PROVIDERS: ADMIT Hospitalist; ATTEND Family Medicine
DX: A41.9 Sepsis, unspecified organism (principal); J18.9 Pneumonia, unspecified organism; N17.0 Acute kidney failure with tubular necrosis; G93.41 Metabolic encephalopathy; E46 Unspecified protein-calorie malnutrition; E87.0 Hyperosmolality and hypernatremia; E86.0 Dehydration; E87.5 Hyperkalemia; J44.0 Chronic obstructive pulmonary disease with (acute) lower respiratory infection; J44.1 Chronic obstructive pulmonary disease with (acute) exacerbation; Z68.1 Body mass index [BMI] 19.9 or less, adult; E87.1 Hypo-osmolality and hyponatremia; F03.90 Unspecified dementia, unspecified severity, without behavioral disturbance, psychotic disturbance, mood disturbance, and anxiety; Y95 Nosocomial condition; K21.9 Gastro-esophageal reflux disease without esophagitis; E83.41 Hypermagnesemia; E78.00 Pure hypercholesterolemia, unspecified; H91.90 Unspecified hearing loss, unspecified ear; E83.42 Hypomagnesemia; I12.9 Hypertensive chronic kidney disease with stage 1 through stage 4 chronic kidney disease, or unspecified chronic kidney disease; N40.0 Benign prostatic hyperplasia without lower urinary tract symptoms; I25.10 Atherosclerotic heart disease of native coronary artery without angina pectoris; N18.9 Chronic kidney disease, unspecified; R62.7 Adult failure to thrive; Z66 Do not resuscitate; Z88.8 Allergy status to other drugs, medicaments and biological substances; Z88.2 Allergy status to sulfonamides; Z79.82 Long term (current) use of aspirin; Z79.899 Other long term (current) drug therapy; Z86.73 Personal history of transient ischemic attack (TIA), and cerebral infarction without residual deficits; Z87.891 Personal history of nicotine dependence
CPT/HCPCS: 36415; 36600; 71045; 80048; 80053; 82803; 83605; 83735; 83880; 84100; 84484; 85018; 85025; 85610; 85730; 87040; 87070; 93005; 94640; 94668; 94760; 96361; 96374; 97110; 97116; 97162; 97530; 99285; A6213; A6258; J0456; J0692; J0696; J1644; J2060; J2920; J2930; J7030; J7060; J7512

== ENCOUNTER 2018-09-17 08:10 | Inpatient (IN) | payer MEDICARE, OTHER ==
[~2018-09-17] VITALS: Ht 172.7 cm; Wt 60.5 kg
[~2018-09-17 08:10] MED LIST changes: +ALBU8.5H8 INH; -ATOR80TA PO; +BUDE10.2 INH; -CITA20TA11 PO; +LORA10TA7 PO; +PANT-47 PO; +ROSU40TA PO; +[UNRECOGNIZED DRUG - CODE]
[2018-09-17] MEDS ORDERED: dexamethasone sod phosphate 10mg/ml inj IV STA (08:15)
[2018-09-17] MEDS ORDERED: ipratropium/albuterol 3ml nebule NEB ONE (08:15)
[2018-09-17 08:45] LABS: ABG BASE EXCESS -2.1 mmol/L (-2.0-3.0); ABG OXYGEN SATURATION 94.9 % (95-98); ABG PCO2 (T) 31.3 mmHg (35.0-48.0); ABG PH (T) 7.444 (7.350-7.450); ALLEN'S TEST Positive; FCOHb 0.6 % (0.5-1.5); FO2Hb 94.3 % (94-100)
[2018-09-17 09:05] LABS: BASOPHILS % (AUTO) 0.3 % (0-1); EOSINOPHILS % (AUTO) 0 % (0-6); HEMATOCRIT 43.2 % (42.0-52.0); HEMOGLOBIN 14.2 g/dl (14.0-17.9); LYMPHOCYTES # (AUTO) 0.9 X10'3 (1.1-4.8); LYMPHOCYTES % (AUTO) 5.8 % (21-51); MEAN CORPUSCULAR HEMOGLOBIN 28.5 PG (27.0-31.0); MEAN CORPUSCULAR HGB CONC 32.9 % (33.0-36.5); MEAN CORPUSCULAR VOLUME 86.4 FL (78-98); MEAN PLATELET VOLUME 8.4 FL (7.4-10.4); MONOCYTES # (AUTO) 1.1 X10'3 (0-0.9); MONOCYTES % (AUTO) 6.9 % (2-12); NEUTROPHILS # (AUTO) 13.6 X10'3 (1.8-7.7); PLATELET COUNT 186 X10'3 (140-440); RED CELL DISTRIBUTION WIDTH 14.8 % (11.5-14.5); WHITE BLOOD COUNT 15.6 X10'3 (4.5-11.0)
[2018-09-17 09:20] LABS: ALANINE AMINOTRANSFERASE 21 U/L (12-78); ALBUMIN 3.6 G/DL (3.4-5.0); ALKALINE PHOSPHATASE 85 IU/L (46-116); ANION GAP 12 (8-16); ASPARTATE AMINO TRANSFERASE 40 U/L (10-37); BLOOD UREA NITROGEN 24 MG/DL (7-18); CALCIUM 9.3 MG/DL (8.5-10.1); CHLORIDE 107 MMOL/L (99-107); CREATININE 1.84 MG/DL (0.60-1.10); GLUCOSE 127 MG/DL (70-104); POTASSIUM 3.9 MMOL/L (3.5-5.1); SODIUM 143 MMOL/L (135-145); TOTAL CARBON DIOXIDE 23.7 MMOL/L (24-32); TOTAL PROTEIN 7.2 G/DL (6.4-8.2); eGFR 36 ML/MIN
[2018-09-17] MEDS ORDERED: heparin 10,000 units/1 ML INJ IV PRN (09:25)
[2018-09-17] MEDS ORDERED: aspirin 81mg tab.chew PO ONE (09:25)
[2018-09-17] MEDS ORDERED: heparin 10,000 units/1 ML INJ IV ONE ×2 (09:25→09:30)
[2018-09-17 09:26] LABS: MAGNESIUM 2.1 MG/DL (1.5-2.4)
[2018-09-17 09:45] LABS: INR 1.1 INR; PARTIAL THROMBOPLASTIN TIME 32 SECONDS (22-32); PROTHROMBIN TIME 10.7 SECONDS (9.0-12.0)
[2018-09-17] MEDS: heparin 25,000 UNIT/250ml bag 250 ML IV SCH ×2 (09:50→15:45)
[2018-09-17] MEDS ORDERED: IPRA4AER IH (10:06)
[2018-09-17] MEDS ORDERED: ondansetron/PF 4mg/2ml inj IV PRN (10:30)
[2018-09-17] MEDS ORDERED: magnesium 1gm/100ml D5W IVPB 100 ML IV PRN (10:30)
[2018-09-17] MEDS ORDERED: potassium Cl 20 mEq SR tablet PO PRN ×2 (10:30)
[2018-09-17] MEDS ORDERED: morphine 2 MG/ML inj. syringe IV PRN ×2 (10:30)
[2018-09-17] MEDS ORDERED: acetaminophen 325mg tablet PO PRN (10:30)
[2018-09-17] MEDS ORDERED: mag hydrox/Alum hydrox/simeth 30ml oral suspension PO PRN (10:30)
[2018-09-17] MEDS ORDERED: magnesium 4gm in 100ml NS 100 ML IV PRN (10:30)
[2018-09-17] MEDS ORDERED: docusate sod 100mg capsule PO PRN (10:30)
[2018-09-17] MEDS ORDERED: potassium Cl 40MEQ/NS 500ml 500 ML IV PRN ×2 (10:30)
[2018-09-17] MEDS ORDERED: doxycycline inj 100 MG in normal saline 100ml IV soln 100 ML IV SCH ×2 (11:23→15:04)
[2018-09-17] MEDS ORDERED: clopidogrel 75mg tablet PO ONE (12:00)
[2018-09-17 12:04] VITALS: BP 114/54
[2018-09-17 15:00] VITALS: BP 128/58
[2018-09-17] MEDS: ipratropium/albuterol 3ml nebule NEB PRN ×2 (17:04→20:57)
[2018-09-17] MEDS: normal saline 1000ml 1,000 ML IV SCH (17:45)
[2018-09-17 19:00] VITALS: BP 125/55
[2018-09-17] MEDS: metoprolol tartrate 12.5mg (1/2 tablet) PO SCH (21:11)
[2018-09-17 23:00] VITALS: BP 113/55
[2018-09-18] VITALS (8 sets, daily range): BP systolic 134–171; BP diastolic 50–81
[2018-09-18] MEDS: doxycycline inj 100 MG in normal saline 100ml IV soln 100 ML IV SCH ×2 (02:00→14:17)
[2018-09-18] MEDS: normal saline 1000ml 1,000 ML IV SCH (06:20)
[2018-09-18 06:35] LABS: BASOPHILS % (AUTO) 0.1 % (0-1); EOSINOPHILS # (AUTO) 0.2 X10'3 (0-0.9); EOSINOPHILS % (AUTO) 1.1 % (0-6); HEMATOCRIT 38.9 % (42.0-52.0); HEMOGLOBIN 12.9 g/dl (14.0-17.9); LYMPHOCYTES # (AUTO) 0.9 X10'3 (1.1-4.8); LYMPHOCYTES % (AUTO) 4.7 % (21-51); MEAN CORPUSCULAR HEMOGLOBIN 28.5 PG (27.0-31.0); MEAN CORPUSCULAR HGB CONC 33.2 % (33.0-36.5); MEAN CORPUSCULAR VOLUME 86.1 FL (78-98); MONOCYTES # (AUTO) 1.3 X10'3 (0-0.9); MONOCYTES % (AUTO) 6.7 % (2-12); NEUTROPHILS # (AUTO) 16.9 X10'3 (1.8-7.7); NEUTROPHILS % (AUTO) 87.4 % (42-75); PLATELET COUNT 186 X10'3 (140-440); RED BLOOD COUNT 4.52 X10'6 (4.70-6.10); RED CELL DISTRIBUTION WIDTH 14.3 % (11.5-14.5); WHITE BLOOD COUNT 19.3 X10'3 (4.5-11.0)
[2018-09-18 06:52] LABS: ALANINE AMINOTRANSFERASE 23 U/L (12-78); ALBUMIN 3.4 G/DL (3.4-5.0); ALKALINE PHOSPHATASE 75 IU/L (46-116); ANION GAP 11 (8-16); ASPARTATE AMINO TRANSFERASE 39 U/L (10-37); BILIRUBIN,TOTAL 0.5 MG/DL (0.1-1.0); BLOOD UREA NITROGEN 29 MG/DL (7-18); CALCIUM 9.3 MG/DL (8.5-10.1); CHLORIDE 107 MMOL/L (99-107); CHOL/HDL RATIO 1.5 (0.00-4.99); CHOLESTEROL 112 MG/DL (0-200); CREATININE 1.71 MG/DL (0.60-1.10); GLUCOSE 119 MG/DL (70-104); HDL CHOLESTEROL 73 MG/DL (35-60); LDL CHOLESTEROL 38 MG/DL (50-100); MAGNESIUM 2.1 MG/DL (1.5-2.4); POTASSIUM 4.1 MMOL/L (3.5-5.1); SODIUM 142 MMOL/L (135-145); TOTAL PROTEIN 6.9 G/DL (6.4-8.2); TRIGLYCERIDES 40 MG/DL (20-135); eGFR 39 ML/MIN
[2018-09-18] MEDS: K and/or MAG REPLACEMENT MC SCH (07:39)
[2018-09-18] MEDS: loratadine 10mg tablet PO SCH (07:44)
[2018-09-18] MEDS: aspirin 81mg tablet.DR PO SCH (07:44)
[2018-09-18] MEDS: atorvastatin 20mg tablet PO SCH (07:44)
[2018-09-18] MEDS: tamsulosin 0.4mg capsule PO SCH (07:44)
[2018-09-18] MEDS: clopidogrel 75mg tablet PO SCH (07:44)
[2018-09-18] MEDS: finasteride 5mg tablet PO SCH (07:44)
[2018-09-18] MEDS: metoprolol tartrate 12.5mg (1/2 tablet) PO SCH ×2 (07:45→20:37)
[2018-09-18] MEDS: vitamin D (cholecalciferol) 1,000 unit tablet PO SCH (07:45)
[2018-09-18] MEDS: losartan 50mg tablet PO SCH (17:06)
[2018-09-18] MEDS: lactobacillus rhamnosus 10,000 MMU CELLS/CAPSULE PO SCH (20:39)
[2018-09-18] MEDS ORDERED: LORazepam 1 MG tablet PO PRN (22:25)
[2018-09-19] MEDS: doxycycline inj 100 MG in normal saline 100ml IV soln 100 ML IV SCH ×3 (02:29→17:55)
[2018-09-19 03:00] VITALS: BP 164/82
[2018-09-19] MEDS: ipratropium/albuterol 3ml nebule NEB PRN ×3 (03:42→16:34)
[2018-09-19 05:24] LABS: BASOPHILS % (AUTO) 0.2 % (0-1); EOSINOPHILS # (AUTO) 0.1 X10'3 (0-0.9); EOSINOPHILS % (AUTO) 0.9 % (0-6); HEMATOCRIT 39.4 % (42.0-52.0); LYMPHOCYTES % (AUTO) 7.6 % (21-51); MEAN CORPUSCULAR HEMOGLOBIN 28.5 PG (27.0-31.0); MEAN CORPUSCULAR HGB CONC 33.1 % (33.0-36.5); MEAN CORPUSCULAR VOLUME 86.1 FL (78-98); MEAN PLATELET VOLUME 9.3 FL (7.4-10.4); MONOCYTES # (AUTO) 1.1 X10'3 (0-0.9); MONOCYTES % (AUTO) 8.5 % (2-12); NEUTROPHILS # (AUTO) 11.1 X10'3 (1.8-7.7); NEUTROPHILS % (AUTO) 82.8 % (42-75); PLATELET COUNT 182 X10'3 (140-440); RED BLOOD COUNT 4.57 X10'6 (4.70-6.10); RED CELL DISTRIBUTION WIDTH 14.9 % (11.5-14.5); WHITE BLOOD COUNT 13.4 X10'3 (4.5-11.0)
[2018-09-19 05:29] LABS: ALANINE AMINOTRANSFERASE 23 U/L (12-78); ALBUMIN 3.3 G/DL (3.4-5.0); ALKALINE PHOSPHATASE 87 IU/L (46-116); ANION GAP 11 (8-16); ASPARTATE AMINO TRANSFERASE 44 U/L (10-37); BILIRUBIN,TOTAL 0.7 MG/DL (0.1-1.0); BLOOD UREA NITROGEN 28 MG/DL (7-18); BUN/CREATININE RATIO 17.3 (5.4-32.0); CALCIUM 9.1 MG/DL (8.5-10.1); CHLORIDE 108 MMOL/L (99-107); CREATININE 1.62 MG/DL (0.60-1.10); GLUCOSE 91 MG/DL (70-104); MAGNESIUM 1.8 MG/DL (1.5-2.4); POTASSIUM 4.4 MMOL/L (3.5-5.1); SODIUM 142 MMOL/L (135-145); TOTAL CARBON DIOXIDE 23.1 MMOL/L (24-32); TOTAL PROTEIN 6.7 G/DL (6.4-8.2); eGFR 41 ML/MIN
[2018-09-19 07:11] VITALS: BP 160/75
[2018-09-19] MEDS ORDERED: enoxaparin 40mg/0.4ml syringe SUBCUT SCH (08:00)
[2018-09-19] MEDS: metoprolol tartrate 12.5mg (1/2 tablet) PO SCH (08:00)
[2018-09-19] MEDS: loratadine 10mg tablet PO SCH (08:32)
[2018-09-19] MEDS: finasteride 5mg tablet PO SCH (08:32)
[2018-09-19] MEDS: aspirin 81mg tablet.DR PO SCH (08:33)
[2018-09-19] MEDS: atorvastatin 20mg tablet PO SCH (08:34)
[2018-09-19] MEDS: clopidogrel 75mg tablet PO SCH (08:35)
[2018-09-19] MEDS: lactobacillus rhamnosus 10,000 MMU CELLS/CAPSULE PO SCH ×2 (08:35→20:00)
[2018-09-19] MEDS: vitamin D (cholecalciferol) 1,000 unit tablet PO SCH (08:36)
[2018-09-19] MEDS: tamsulosin 0.4mg capsule PO SCH (08:37)
[2018-09-19] MEDS: losartan 50mg tablet PO SCH (08:37)
[2018-09-19 11:00] VITALS: BP 156/66
[2018-09-19] MEDS ORDERED: LORazepam 2 mg/ml vial IV ONE (11:20)
[2018-09-19 12:51] LABS: ABG BASE EXCESS -3.6 mmol/L (-2.0-3.0); ABG HCO3 20.8 mmol/L (22.0-26.0); ABG PCO2 (T) 35.6 mmHg (35.0-48.0); ABG PH (T) 7.384 (7.350-7.450); ABG PO2 (T) 108.9 mmHg (83-108); ALLEN'S TEST Positive; FLOW 2 L/min; FMetHb 0.3 % (0.3-1.12); FO2Hb 97.7 % (94-100); TOTAL HEMOGLOBIN 14.5 G/dl (14.0-18.0)
[2018-09-19 15:00] VITALS: BP 152/59
[2018-09-19] MEDS ORDERED: normal saline 1000ml 1,000 ML IV SCH (15:45)
[2018-09-19] MEDS ORDERED: LIDOcaine 2% 10ml TOPICAL JELLY (Urojet) MM STA (15:51)
[2018-09-19] MEDS ORDERED: enoxaparin 60mg/0.6ml syringe SUBCUT ONE (16:45)
[2018-09-19] MEDS ORDERED: heparin 10,000 units/1 ML INJ IV ONE (17:20)
[2018-09-19 18:48] LABS: CLARITY,URINE CLOUDY (Clear); COLOR,URINE YELLOW (Yellow); GLUCOSE, URINE NEGATIVE (Neg); KETONES,URINE 15 mg/dl (Neg); LEUKOCYTE ESTERASE ,URINE NEGATIVE (Neg); NITRITES, URINE NEGATIVE (Neg); OCCULT BLOOD,URINE SMALL (Neg); PROTEIN,URINE 30 mg/dl (Neg); UROBILINOGEN,URINE 0.2 E.U/dL (0.2-1.0)
[2018-09-19 18:57] LABS: SQUAMOUS EPITHELIAL CELL,UR FEW /LPF (FEW); UA COLLECTION TYPE NON-SPECIFIED
[2018-09-19 18:59] LABS: MUCUS STRANDS FEW /LPF (Neg)
[2018-09-19 19:00] VITALS: BP 152/59
[2018-09-19 19:00] LABS: AMORPHOUS URATES 2+; BACTERIA,URINE 1+ /HPF (Neg); RBC,URINE 0-2 /HPF (0-2); WBC,URINE 0-4 /HPF (0-4)
[2018-09-19] MEDS ORDERED: metoprolol tartrate 1mg/ml inj IV STA ×2 (19:12→19:41)
[2018-09-19] MEDS ORDERED: NORMAL SALINE IV ONE ×2 (19:20→19:25)
[2018-09-19] MEDS ORDERED: METOPROLOL TARTRATE IV ONE ×2 (19:20→19:25)
[2018-09-19] MEDS: metoprolol tartrate 25mg tablet PO SCH (20:00)
[2018-09-19] MEDS: acetaminophen 650mg rectal suppository RC PRN (21:53)
[2018-09-19] MEDS: normal saline 1000ml 1,000 ML IV SCH (21:54)
[2018-09-19] MEDS: K and/or MAG REPLACEMENT MC SCH (21:55)
[2018-09-19 23:00] VITALS: BP 119/55
[2018-09-20 03:00] VITALS: BP 167/73
[2018-09-20 03:22] LABS: BASOPHILS # (AUTO) 0.1 X10'3 (0-0.2); BASOPHILS % (AUTO) 0.7 % (0-1); EOSINOPHILS # (AUTO) 0.1 X10'3 (0-0.9); EOSINOPHILS % (AUTO) 0.9 % (0-6); HEMATOCRIT 36.4 % (42.0-52.0); HEMOGLOBIN 12.3 g/dl (14.0-17.9); LYMPHOCYTES # (AUTO) 0.5 X10'3 (1.1-4.8); LYMPHOCYTES % (AUTO) 6.3 % (21-51); MEAN CORPUSCULAR HEMOGLOBIN 28.8 PG (27.0-31.0); MEAN CORPUSCULAR HGB CONC 33.6 % (33.0-36.5); MEAN CORPUSCULAR VOLUME 85.6 FL (78-98); MEAN PLATELET VOLUME 8.8 FL (7.4-10.4); MONOCYTES # (AUTO) 0.6 X10'3 (0-0.9); MONOCYTES % (AUTO) 8.6 % (2-12); NEUTROPHILS # (AUTO) 6.2 X10'3 (1.8-7.7); NEUTROPHILS % (AUTO) 83.5 % (42-75); PLATELET COUNT 192 X10'3 (140-440); RED BLOOD COUNT 4.26 X10'6 (4.70-6.10); WHITE BLOOD COUNT 7.4 X10'3 (4.5-11.0)
[2018-09-20 03:39] LABS: ALANINE AMINOTRANSFERASE 22 U/L (12-78); ALBUMIN 2.9 G/DL (3.4-5.0); ALBUMIN/GLOBULIN RATIO 0.8 (1.1-1.5); ALKALINE PHOSPHATASE 87 IU/L (46-116); ANION GAP 11 (8-16); ASPARTATE AMINO TRANSFERASE 34 U/L (10-37); BILIRUBIN,TOTAL 0.8 MG/DL (0.1-1.0); BLOOD UREA NITROGEN 31 MG/DL (7-18); BUN/CREATININE RATIO 16.8 (5.4-32.0); CHLORIDE 110 MMOL/L (99-107); CREATININE 1.85 MG/DL (0.60-1.10); GLUCOSE 99 MG/DL (70-104); POTASSIUM 4.4 MMOL/L (3.5-5.1); SODIUM 144 MMOL/L (135-145); TOTAL CARBON DIOXIDE 23.2 MMOL/L (24-32); TOTAL PROTEIN 6.5 G/DL (6.4-8.2); eGFR 35 ML/MIN
[2018-09-20] MEDS: normal saline 1000ml 1,000 ML IV SCH ×2 (03:39→17:39)
[2018-09-20] MEDS: heparin 10,000 units/1 ML INJ IV PRN (05:14)
[2018-09-20] MEDS: heparin 25,000 UNIT/250ml bag 250 ML IV SCH ×2 (05:20→13:57)
[2018-09-20] MEDS: doxycycline inj 100 MG in normal saline 100ml IV soln 100 ML IV SCH ×2 (05:23→17:03)
[2018-09-20 06:00] VITALS: BP 176/77
[2018-09-20] MEDS: ipratropium/albuterol 3ml nebule NEB PRN ×2 (07:03→20:00)
[2018-09-20] MEDS: losartan 50mg tablet PO SCH (08:13)
[2018-09-20] MEDS: lactobacillus rhamnosus 10,000 MMU CELLS/CAPSULE PO SCH ×2 (08:14→20:00)
[2018-09-20] MEDS: loratadine 10mg tablet PO SCH (08:14)
[2018-09-20] MEDS: vitamin D (cholecalciferol) 1,000 unit tablet PO SCH (08:18)
[2018-09-20] MEDS: atorvastatin 20mg tablet PO SCH (08:19)
[2018-09-20] MEDS: metoprolol tartrate 25mg tablet PO SCH ×2 (08:30→20:11)
[2018-09-20] MEDS: finasteride 5mg tablet PO SCH (08:30)
[2018-09-20] MEDS: tamsulosin 0.4mg capsule PO SCH (08:30)
[2018-09-20] MEDS: K and/or MAG REPLACEMENT MC SCH (08:36)
[2018-09-20 11:00] VITALS: BP 163/62
[2018-09-20] MEDS ORDERED: acetaminophen 650mg rectal suppository RC PRN (12:30)
[2018-09-20] MEDS: acetaminophen 650mg rectal suppository RC PRN ×2 (13:50→20:17)
[2018-09-20 15:00] VITALS: BP 158/54
[2018-09-20 18:00] VITALS: BP 133/66
[2018-09-20 22:00] VITALS: BP 178/57
[2018-09-21] MEDS: normal saline 1000ml 1,000 ML IV SCH ×3 (01:35→11:42)
[2018-09-21 02:00] VITALS: BP 133/54
[2018-09-21 02:14] LABS: BASOPHILS % (AUTO) 0.1 % (0-1); EOSINOPHILS % (AUTO) 0 % (0-6); HEMATOCRIT 23.3 % (42.0-52.0); HEMOGLOBIN 7.8 g/dl (14.0-17.9); LYMPHOCYTES # (AUTO) 0.6 X10'3 (1.1-4.8); LYMPHOCYTES % (AUTO) 6.8 % (21-51); MEAN CORPUSCULAR HEMOGLOBIN 28.6 PG (27.0-31.0); MEAN CORPUSCULAR HGB CONC 33.4 % (33.0-36.5); MEAN CORPUSCULAR VOLUME 85.7 FL (78-98); MEAN PLATELET VOLUME 9.1 FL (7.4-10.4); MONOCYTES # (AUTO) 0.6 X10'3 (0-0.9); MONOCYTES % (AUTO) 6.6 % (2-12); NEUTROPHILS # (AUTO) 7.3 X10'3 (1.8-7.7); NEUTROPHILS % (AUTO) 86.5 % (42-75); PLATELET COUNT 183 X10'3 (140-440); RED BLOOD COUNT 2.72 X10'6 (4.70-6.10); RED CELL DISTRIBUTION WIDTH 14.7 % (11.5-14.5); WHITE BLOOD COUNT 8.4 X10'3 (4.5-11.0)
[2018-09-21 02:31] LABS: ALANINE AMINOTRANSFERASE 24 U/L (12-78); ALBUMIN 2.2 G/DL (3.4-5.0); ALBUMIN/GLOBULIN RATIO 0.7 (1.1-1.5); ALKALINE PHOSPHATASE 69 IU/L (46-116); ANION GAP 9 (8-16); ASPARTATE AMINO TRANSFERASE 41 U/L (10-37); BILIRUBIN,TOTAL 0.6 MG/DL (0.1-1.0); BLOOD UREA NITROGEN 26 MG/DL (7-18); BUN/CREATININE RATIO 14.3 (5.4-32.0); CALCIUM 8.3 MG/DL (8.5-10.1); CHLORIDE 113 MMOL/L (99-107); CREATININE 1.82 MG/DL (0.60-1.10); GLUCOSE 149 MG/DL (70-104); MAGNESIUM 1.8 MG/DL (1.5-2.4); POTASSIUM 3.5 MMOL/L (3.5-5.1); SODIUM 144 MMOL/L (135-145); TOTAL CARBON DIOXIDE 22.2 MMOL/L (24-32); TOTAL PROTEIN 5.3 G/DL (6.4-8.2); eGFR 36 ML/MIN
[2018-09-21] MEDS: doxycycline inj 100 MG in normal saline 100ml IV soln 100 ML IV SCH ×2 (05:59→17:37)
[2018-09-21 06:00] VITALS: BP 127/100
[2018-09-21 06:49] LABS: HEMATOCRIT 31.9 % (42.0-52.0); HEMOGLOBIN 10.6 g/dl (14.0-17.9); MEAN CORPUSCULAR HEMOGLOBIN 28.5 PG (27.0-31.0); MEAN CORPUSCULAR HGB CONC 33.2 % (33.0-36.5); MEAN CORPUSCULAR VOLUME 85.8 FL (78-98); MEAN PLATELET VOLUME 8.7 FL (7.4-10.4); PLATELET COUNT 166 X10'3 (140-440); RED BLOOD COUNT 3.71 X10'6 (4.70-6.10); RED CELL DISTRIBUTION WIDTH 14.9 % (11.5-14.5)
[2018-09-21] MEDS: K and/or MAG REPLACEMENT MC SCH (08:00)
[2018-09-21] MEDS: loratadine 10mg tablet PO SCH (09:05)
[2018-09-21] MEDS: tamsulosin 0.4mg capsule PO SCH (09:06)
[2018-09-21] MEDS: lactobacillus rhamnosus 10,000 MMU CELLS/CAPSULE PO SCH ×2 (09:06→19:45)
[2018-09-21] MEDS: metoprolol tartrate 25mg tablet PO SCH ×2 (09:07→19:45)
[2018-09-21] MEDS: vitamin D (cholecalciferol) 1,000 unit tablet PO SCH (09:08)
[2018-09-21] MEDS: atorvastatin 20mg tablet PO SCH (09:08)
[2018-09-21] MEDS: finasteride 5mg tablet PO SCH (09:09)
[2018-09-21] MEDS: cefepime 1GM/NS ADD-VANTAGE 100 ML IV SCH ×3 (09:10→15:59)
[2018-09-21 11:00] VITALS: BP 120/51
[2018-09-21 15:00] VITALS: BP 159/50
[2018-09-21] MEDS: heparin 25,000 UNIT/250ml bag 250 ML IV SCH (16:06)
[2018-09-21] MEDS: ipratropium/albuterol 3ml nebule NEB PRN (17:20)
[2018-09-21 18:00] VITALS: BP 128/47
[2018-09-21 22:00] VITALS: BP 174/71
[2018-09-22] VITALS (7 sets, daily range): BP systolic 130–186; BP diastolic 52–137
[2018-09-22] MEDS: heparin 25,000 UNIT/250ml bag 250 ML IV SCH (00:05)
[2018-09-22] MEDS: ipratropium/albuterol 3ml nebule NEB PRN (00:23)
[2018-09-22] MEDS: cefepime 1GM/NS ADD-VANTAGE 100 ML IV SCH ×3 (00:31→16:07)
[2018-09-22] MEDS: doxycycline inj 100 MG in normal saline 100ml IV soln 100 ML IV SCH ×2 (04:53→17:27)
[2018-09-22 06:03] LABS: BASOPHILS % (AUTO) 0.2 % (0-1); EOSINOPHILS # (AUTO) 0.1 X10'3 (0-0.9); EOSINOPHILS % (AUTO) 1.8 % (0-6); HEMATOCRIT 27.5 % (42.0-52.0); HEMOGLOBIN 9.2 g/dl (14.0-17.9); LYMPHOCYTES # (AUTO) 0.7 X10'3 (1.1-4.8); LYMPHOCYTES % (AUTO) 9.7 % (21-51); MEAN CORPUSCULAR HEMOGLOBIN 28.5 PG (27.0-31.0); MEAN CORPUSCULAR HGB CONC 33.3 % (33.0-36.5); MEAN CORPUSCULAR VOLUME 85.5 FL (78-98); MEAN PLATELET VOLUME 9.6 FL (7.4-10.4); MONOCYTES # (AUTO) 0.5 X10'3 (0-0.9); MONOCYTES % (AUTO) 7.5 % (2-12); NEUTROPHILS # (AUTO) 5.8 X10'3 (1.8-7.7); NEUTROPHILS % (AUTO) 80.8 % (42-75); PLATELET COUNT 182 X10'3 (140-440); RED BLOOD COUNT 3.22 X10'6 (4.70-6.10); RED CELL DISTRIBUTION WIDTH 14.9 % (11.5-14.5); WHITE BLOOD COUNT 7.2 X10'3 (4.5-11.0)
[2018-09-22 06:47] LABS: ALANINE AMINOTRANSFERASE 29 U/L (12-78); ALBUMIN 1.9 G/DL (3.4-5.0); ALBUMIN/GLOBULIN RATIO 0.6 (1.1-1.5); ALKALINE PHOSPHATASE 62 IU/L (46-116); ANION GAP 9 (8-16); ASPARTATE AMINO TRANSFERASE 37 U/L (10-37); BILIRUBIN,TOTAL 0.5 MG/DL (0.1-1.0); BLOOD UREA NITROGEN 26 MG/DL (7-18); CALCIUM 8.3 MG/DL (8.5-10.1); CHLORIDE 116 MMOL/L (99-107); CREATININE 1.62 MG/DL (0.60-1.10); GLUCOSE 104 MG/DL (70-104); MAGNESIUM 1.7 MG/DL (1.5-2.4); POTASSIUM 3.5 MMOL/L (3.5-5.1); SODIUM 146 MMOL/L (135-145); TOTAL CARBON DIOXIDE 21.4 MMOL/L (24-32); eGFR 41 ML/MIN
[2018-09-22] MEDS: finasteride 5mg tablet PO SCH (08:00)
[2018-09-22] MEDS: loratadine 10mg tablet PO SCH (08:00)
[2018-09-22] MEDS: tamsulosin 0.4mg capsule PO SCH (08:00)
[2018-09-22] MEDS: K and/or MAG REPLACEMENT MC SCH (08:00)
[2018-09-22] MEDS: atorvastatin 20mg tablet PO SCH (08:00)
[2018-09-22] MEDS: metoprolol tartrate 25mg tablet PO SCH ×2 (08:01→19:49)
[2018-09-22] MEDS: lactobacillus rhamnosus 10,000 MMU CELLS/CAPSULE PO SCH ×2 (08:02→19:49)
[2018-09-22] MEDS: vitamin D (cholecalciferol) 1,000 unit tablet PO SCH (08:02)
[2018-09-22] MEDS: dextrose 5%-water 1,000 ML IV SCH ×2 (11:01→23:52)
[2018-09-23] VITALS (9 sets, daily range): BP systolic 119–202; BP diastolic 50–98
[2018-09-23] MEDS: hydrALAZINE 20mg/ml inj. IV PRN ×2 (01:20→20:35)
[2018-09-23] MEDS: ipratropium/albuterol 3ml nebule NEB PRN (03:20)
[2018-09-23] MEDS: cefepime 1GM/NS ADD-VANTAGE 100 ML IV SCH ×2 (04:23→16:57)
[2018-09-23] MEDS: dextrose 5%-water 1,000 ML IV SCH (05:00)
[2018-09-23] MEDS: doxycycline inj 100 MG in normal saline 100ml IV soln 100 ML IV SCH (05:28)
[2018-09-23 06:25] LABS: BASOPHILS % (AUTO) 0.3 % (0-1); EOSINOPHILS # (AUTO) 0.2 X10'3 (0-0.9); HEMATOCRIT 31.1 % (42.0-52.0); HEMOGLOBIN 10.4 g/dl (14.0-17.9); LYMPHOCYTES # (AUTO) 0.8 X10'3 (1.1-4.8); LYMPHOCYTES % (AUTO) 9.8 % (21-51); MEAN CORPUSCULAR HEMOGLOBIN 28.3 PG (27.0-31.0); MEAN CORPUSCULAR HGB CONC 33.3 % (33.0-36.5); MEAN CORPUSCULAR VOLUME 84.9 FL (78-98); MEAN PLATELET VOLUME 9.9 FL (7.4-10.4); MONOCYTES # (AUTO) 0.8 X10'3 (0-0.9); MONOCYTES % (AUTO) 9.6 % (2-12); NEUTROPHILS # (AUTO) 6.2 X10'3 (1.8-7.7); NEUTROPHILS % (AUTO) 78.3 % (42-75); PLATELET COUNT 210 X10'3 (140-440); RED BLOOD COUNT 3.66 X10'6 (4.70-6.10); RED CELL DISTRIBUTION WIDTH 14.9 % (11.5-14.5); WHITE BLOOD COUNT 7.9 X10'3 (4.5-11.0)
[2018-09-23 06:45] LABS: ALANINE AMINOTRANSFERASE 31 U/L (12-78); ALBUMIN 1.9 G/DL (3.4-5.0); ALBUMIN/GLOBULIN RATIO 0.5 (1.1-1.5); ALKALINE PHOSPHATASE 77 IU/L (46-116); ANION GAP 11 (8-16); ASPARTATE AMINO TRANSFERASE 45 U/L (10-37); BILIRUBIN,TOTAL 0.6 MG/DL (0.1-1.0); BLOOD UREA NITROGEN 20 MG/DL (7-18); BUN/CREATININE RATIO 13.7 (5.4-32.0); CALCIUM 8.3 MG/DL (8.5-10.1); CHLORIDE 108 MMOL/L (99-107); CREATININE 1.46 MG/DL (0.60-1.10); GLUCOSE 109 MG/DL (70-104); MAGNESIUM 1.5 MG/DL (1.5-2.4); SODIUM 140 MMOL/L (135-145); TOTAL PROTEIN 5.5 G/DL (6.4-8.2); eGFR 46 ML/MIN
[2018-09-23 07:00] LABS: POTASSIUM 2.8 MMOL/L (3.5-5.1)
[2018-09-23] MEDS: heparin 10,000 units/1 ML INJ IV PRN (07:26)
[2018-09-23] MEDS: heparin 25,000 UNIT/250ml bag 250 ML IV SCH ×2 (07:28→11:43)
[2018-09-23] MEDS ORDERED: potassium Cl 40MEQ/NS 500ml 500 ML IV PRN ×2 (07:50)
[2018-09-23] MEDS ORDERED: potassium Cl 20 mEq SR tablet PO PRN (07:50)
[2018-09-23] MEDS: K and/or MAG REPLACEMENT MC SCH (08:00)
[2018-09-23] MEDS ORDERED: magnesium 2GM in 50ml NS 50 ML IV SCH (08:30)
[2018-09-23] MEDS: finasteride 5mg tablet PO SCH (08:48)
[2018-09-23] MEDS: loratadine 10mg tablet PO SCH (08:48)
[2018-09-23] MEDS: atorvastatin 20mg tablet PO SCH (08:48)
[2018-09-23] MEDS: tamsulosin 0.4mg capsule PO SCH (08:49)
[2018-09-23] MEDS: metoprolol tartrate 25mg tablet PO SCH ×2 (08:49→20:00)
[2018-09-23] MEDS: lactobacillus rhamnosus 10,000 MMU CELLS/CAPSULE PO SCH ×2 (08:49→20:00)
[2018-09-23] MEDS: vitamin D (cholecalciferol) 1,000 unit tablet PO SCH (08:50)
[2018-09-23] MEDS: potassium Cl 20 mEq SR tablet PO PRN ×2 (12:59→16:57)
[2018-09-23] MEDS: DOXYCYCLINE 100MG CAPSULE PO SCH (16:57)
[2018-09-24] VITALS: BP 157/81
[2018-09-24] MEDS: heparin 25,000 UNIT/250ml bag 250 ML IV SCH ×2 (00:27→07:23)
[2018-09-24] MEDS: heparin 10,000 units/1 ML INJ IV PRN (00:33)
[2018-09-24 03:00] VITALS: BP 150/52
[2018-09-24] MEDS: cefepime 1GM/NS ADD-VANTAGE 100 ML IV SCH (04:14)
[2018-09-24 06:47] VITALS: BP 154/52
[2018-09-24 06:58] LABS: BASOPHILS % (AUTO) 0.1 % (0-1); EOSINOPHILS # (AUTO) 0.1 X10'3 (0-0.9); HEMATOCRIT 30.6 % (42.0-52.0); HEMOGLOBIN 10.3 g/dl (14.0-17.9); MEAN CORPUSCULAR HEMOGLOBIN 28.5 PG (27.0-31.0); MEAN CORPUSCULAR HGB CONC 33.7 % (33.0-36.5); MEAN CORPUSCULAR VOLUME 84.7 FL (78-98); MEAN PLATELET VOLUME 9.4 FL (7.4-10.4); MONOCYTES # (AUTO) 0.9 X10'3 (0-0.9); MONOCYTES % (AUTO) 9.5 % (2-12); NEUTROPHILS % (AUTO) 78.4 % (42-75); PLATELET COUNT 267 X10'3 (140-440); RED BLOOD COUNT 3.61 X10'6 (4.70-6.10); RED CELL DISTRIBUTION WIDTH 15.5 % (11.5-14.5); WHITE BLOOD COUNT 8.9 X10'3 (4.5-11.0)
[2018-09-24 07:04] LABS: CHLORIDE 111 MMOL/L (99-107); SODIUM 143 MMOL/L (135-145)
[2018-09-24 07:24] LABS: POTASSIUM 4.3 MMOL/L (3.5-5.1)
[2018-09-24 07:32] LABS: ALANINE AMINOTRANSFERASE 46 U/L (12-78); ALBUMIN 1.9 G/DL (3.4-5.0); ALBUMIN/GLOBULIN RATIO 0.5 (1.1-1.5); ALKALINE PHOSPHATASE 82 IU/L (46-116); ANION GAP 8 (8-16); ASPARTATE AMINO TRANSFERASE 72 U/L (10-37); BILIRUBIN,TOTAL 0.7 MG/DL (0.1-1.0); BLOOD UREA NITROGEN 22 MG/DL (7-18); BUN/CREATININE RATIO 14.3 (5.4-32.0); CALCIUM 8.1 MG/DL (8.5-10.1); CREATININE 1.54 MG/DL (0.60-1.10); GLUCOSE 106 MG/DL (70-104); MAGNESIUM 2.2 MG/DL (1.5-2.4); TOTAL CARBON DIOXIDE 23.8 MMOL/L (24-32); TOTAL PROTEIN 5.5 G/DL (6.4-8.2); eGFR 44 ML/MIN
[2018-09-24] MEDS: K and/or MAG REPLACEMENT MC SCH (08:00)
[2018-09-24] MEDS: DOXYCYCLINE 100MG CAPSULE PO SCH (08:19)
[2018-09-24] MEDS: loratadine 10mg tablet PO SCH (08:19)
[2018-09-24] MEDS: vitamin D (cholecalciferol) 1,000 unit tablet PO SCH (08:19)
[2018-09-24] MEDS: tamsulosin 0.4mg capsule PO SCH (08:19)
[2018-09-24] MEDS: lactobacillus rhamnosus 10,000 MMU CELLS/CAPSULE PO SCH (08:20)
[2018-09-24] MEDS: metoprolol tartrate 25mg tablet PO SCH (08:20)
[2018-09-24] MEDS: atorvastatin 20mg tablet PO SCH (08:21)
[2018-09-24] MEDS: finasteride 5mg tablet PO SCH (08:24)
[2018-09-24 11:00] VITALS: BP 130/88
[2018-09-24] MEDS ORDERED: APIX2.5T PO (13:40)
[2018-09-24] MEDS ORDERED: CEFD300C3 PO (13:40)
[2018-09-25] MEDS ORDERED: cefpodoxime proxetil 100mg tablet PO SCH (08:00)
== END 2018-09-24 16:50 | disposition home health service (06) | DRG 871 ==
LOC: ER 08:11 → ED HOLD 10:37 → PCU 3S 11:48
PROVIDERS: ADMIT Family Medicine; ATTEND Family Medicine
PROC: 3E02340 Introduction of Influenza Vaccine into Muscle, Percutaneous Approach (ICD-10-PCS; principal; 2018-09-18)
PROC: CB121ZZ Planar Nuclear Medicine Imaging of Lungs and Bronchi using Technetium 99m (Tc-99m) (ICD-10-PCS; 2018-09-19)
DX: A41.9 Sepsis, unspecified organism (principal); I26.99 Other pulmonary embolism without acute cor pulmonale; I21.A1 Myocardial infarction type 2; J18.1 Lobar pneumonia, unspecified organism; J44.1 Chronic obstructive pulmonary disease with (acute) exacerbation; I50.32 Chronic diastolic (congestive) heart failure; J44.0 Chronic obstructive pulmonary disease with (acute) lower respiratory infection; N17.9 Acute kidney failure, unspecified; I13.0 Hypertensive heart and chronic kidney disease with heart failure and stage 1 through stage 4 chronic kidney disease, or unspecified chronic kidney disease; I25.10 Atherosclerotic heart disease of native coronary artery without angina pectoris; F03.90 Unspecified dementia, unspecified severity, without behavioral disturbance, psychotic disturbance, mood disturbance, and anxiety; E78.00 Pure hypercholesterolemia, unspecified; E78.5 Hyperlipidemia, unspecified; F17.210 Nicotine dependence, cigarettes, uncomplicated; H91.90 Unspecified hearing loss, unspecified ear; K21.9 Gastro-esophageal reflux disease without esophagitis; I69.344 Monoplegia of lower limb following cerebral infarction affecting left non-dominant side; R09.02 Hypoxemia; I65.23 Occlusion and stenosis of bilateral carotid arteries; N28.1 Cyst of kidney, acquired; K57.90 Diverticulosis of intestine, part unspecified, without perforation or abscess without bleeding; N18.9 Chronic kidney disease, unspecified; N40.0 Benign prostatic hyperplasia without lower urinary tract symptoms; Z23 Encounter for immunization; Z95.5 Presence of coronary angioplasty implant and graft; Z88.2 Allergy status to sulfonamides; Z88.8 Allergy status to other drugs, medicaments and biological substances; Z79.82 Long term (current) use of aspirin; Z79.02 Long term (current) use of antithrombotics/antiplatelets; Z79.01 Long term (current) use of anticoagulants; Z79.51 Long term (current) use of inhaled steroids; Z79.899 Other long term (current) drug therapy; Z82.49 Family history of ischemic heart disease and other diseases of the circulatory system; Z71.6 Tobacco abuse counseling
CPT/HCPCS: 36415; 36600; 70450; 71045; 71250; 74176; 78582; 80053; 80061; 81001; 82803; 83605; 83735; 83880; 84132; 84145; 84484; 85018; 85025; 85027; 85610; 85730; 87040; 87070; 93308; 94640; 94760; 96374; 96375; 97110; 97116; 97162; 97530; 99291; A9539; A9540; G0378; J0360; J0692; J1100; J1644; J1650; J2060; J2405; J3475; J3490; J7030; J7070